=== PATIENT | male | born 1965 | race Caucasian/White ===

== ENCOUNTER 2019-11-22 09:38 | Emergency (ER) | payer MEDICAID ==
[~2019-11-22] VITALS: Ht 185.4 cm; Wt 110.0 kg
[~2019-11-22 09:38] MED LIST: HYDR100C2 PO; IBUP-1984 PO; NO HOME MEDS; SERT25TA PO
[2019-11-22 10:21] LABS: BASOPHILS # (AUTO) 0.1 X10'3 (0-0.2); BASOPHILS % (AUTO) 0.7 % (0-1); EOSINOPHILS # (AUTO) 0.2 X10'3 (0-0.9); HEMATOCRIT 46.6 % (42.0-52.0); HEMOGLOBIN 15.1 g/dl (14.0-17.9); LYMPHOCYTES # (AUTO) 1.5 X10'3 (1.1-4.8); LYMPHOCYTES % (AUTO) 16.3 % (21-51); MEAN CORPUSCULAR HEMOGLOBIN 28.6 PG (27.0-31.0); MEAN CORPUSCULAR HGB CONC 32.4 g/dL (33.0-36.5); MEAN CORPUSCULAR VOLUME 88.1 FL (78-98); MONOCYTES # (AUTO) 0.6 X10'3 (0-0.9); MONOCYTES % (AUTO) 6.1 % (2-12); NEUTROPHILS # (AUTO) 6.9 X10'3 (1.8-7.7); NEUTROPHILS % (AUTO) 74.9 % (42-75); PLATELET COUNT 312 X10'3 (140-440); RED BLOOD COUNT 5.29 X10'6 (4.70-6.10); RED CELL DISTRIBUTION WIDTH 14.5 % (11.5-14.5); WHITE BLOOD COUNT 9.2 X10'3 (4.5-11.0)
[2019-11-22 10:34] LABS: ALANINE AMINOTRANSFERASE 26 U/L (12-78); ALBUMIN 3.6 G/DL (3.4-5.0); ALBUMIN/GLOBULIN RATIO 0.9 (1.1-1.5); ALKALINE PHOSPHATASE 106 IU/L (46-116); ANION GAP 6 (8-16); ASPARTATE AMINO TRANSFERASE 16 U/L (10-37); BILIRUBIN,TOTAL 0.3 MG/DL (0.1-1.0); BLOOD UREA NITROGEN 11 MG/DL (7-18); BUN/CREATININE RATIO 12.8 (5.4-32.0); CALCIUM 8.8 MG/DL (8.5-10.1); CHLORIDE 105 MMOL/L (99-107); CREATININE 0.86 MG/DL (0.60-1.10); GLUCOSE 106 MG/DL (70-104); POTASSIUM 4.6 MMOL/L (3.5-5.1); SODIUM 139 MMOL/L (135-145); TOTAL CARBON DIOXIDE 28.3 MMOL/L (24-32); TOTAL PROTEIN 7.4 G/DL (6.4-8.2); eGFR > 90 ML/MIN
[2019-11-22] MEDS ORDERED: LIDOcaine 1% 30ml preserv. free vial SQ STA (10:43)
[2019-11-22] MEDS ORDERED: cyclobenzaprine 10mg tablet PO ONE (10:45)
[2019-11-22] MEDS ORDERED: ketorolac tromethamine 15mg/ml inj. IM ONE (11:50)
[2019-11-22] MEDS ORDERED: ondansetron 4mg rapidly disintigrating tab PO ONE (11:50)
[2019-11-22 12:18] LABS: CLARITY,URINE CLEAR (Clear); COLOR,URINE YELLOW (Yellow); GLUCOSE, URINE NEGATIVE (Neg); KETONES,URINE NEGATIVE (Neg); LEUKOCYTE ESTERASE ,URINE NEGATIVE (Neg); NITRITES, URINE NEGATIVE (Neg); OCCULT BLOOD,URINE NEGATIVE (Neg); PH,URINE 5.5 (4.8-8.0); PROTEIN,URINE NEGATIVE (Neg); UROBILINOGEN,URINE 0.2 E.U/dL (0.2-1.0)
[2019-11-22 12:19] LABS: UA COLLECTION TYPE CLN CATCH MIDSTREAM
--- NOTE | 2019-11-22 12:20 | NUR ---
PT REPORTS FEELING NUASEA. PA HIEN GAVE PT SANWICH, JUICE AND CRACKERS. PT ATE 100%. PT LREPORTS THAT NAUSEA IS GONE.
[2019-11-22] MEDS ORDERED: LIDO700A32 TOP (13:30)
[2019-11-22] MEDS ORDERED: IBUP-1985 PO (13:30)
[2019-11-22 13:36] VITALS: BP 133/87
== END 2019-11-22 13:38 | disposition home or self-care (01) ==
LOC: ER 09:38
DX: M54.5 Low back pain (principal); R30.0 Dysuria; R11.0 Nausea; F17.200 Nicotine dependence, unspecified, uncomplicated; R10.9 Unspecified abdominal pain; Z87.442 Personal history of urinary calculi; Z72.89 Other problems related to lifestyle; Z79.899 Other long term (current) drug therapy
CPT/HCPCS: 20552; 36415; 74176; 80053; 81003; 85025; 96372; 99285; J1885

== ENCOUNTER 2020-03-21 17:23 | Emergency (ER) | payer MEDICAID ==
[~2020-03-21] VITALS: Ht 185.4 cm; Wt 100.0 kg
[~2020-03-21 17:23] MED LIST changes: +IBUP-1985 PO; +LIDO700A32 TOP
[2020-03-21] MEDS ORDERED: PRED20TA PO (19:28)
[2020-03-21] MEDS ORDERED: triamcinolone acetonide 40mg/ml inj IM ONE (19:30)
[2020-03-21 20:04] VITALS: BP 136/85
== END 2020-03-21 20:06 | disposition home or self-care (01) ==
LOC: ER 17:23
DX: R21 Rash and other nonspecific skin eruption (principal); Z87.11 Personal history of peptic ulcer disease; Z87.442 Personal history of urinary calculi; Z72.89 Other problems related to lifestyle; Z79.899 Other long term (current) drug therapy
CPT/HCPCS: 96372; 99283; J3301

== ENCOUNTER 2023-04-06 12:53 | Emergency (ER) | payer MEDICAID ==
[~2023-04-06] VITALS: Ht 185.4 cm; Wt 113.6 kg
[2023-04-06 12:59] VITALS: BP 130/92; PULSE 103; O2SAT 98
[2023-04-06 13:28] VITALS: RESP 18
[2023-04-06] MEDS ORDERED: iohexol 300mg/ml 100ml inj. ONE (15:07)
[2023-04-06 15:40] LABS: BASOPHILS # (AUTO) 0.1 X10'3 (0-0.2); EOSINOPHILS # (AUTO) 0.2 X10'3 (0-0.9); MONOCYTES # (AUTO) 0.7 X10'3 (0-0.9); WHITE BLOOD COUNT 10.2 X10'3 (4.5-11.0)
[2023-04-06 15:43] LABS: BASOPHILS % (AUTO) 1.1 % (0-1); EOSINOPHILS % (AUTO) 1.9 % (0-6); HEMATOCRIT 46.3 % (42.0-52.0); HEMOGLOBIN 14.9 g/dl (14.0-17.9); LYMPHOCYTES # (AUTO) 2.2 X10'3 (1.1-4.8); LYMPHOCYTES % (AUTO) 21.2 % (21-51); MEAN CORPUSCULAR HEMOGLOBIN 28.2 PG (27.0-31.0); MEAN CORPUSCULAR HGB CONC 32.3 g/dL (33.0-36.5); MEAN CORPUSCULAR VOLUME 87.4 FL (78-98); MEAN PLATELET VOLUME 8.2 FL (7.4-10.4); MONOCYTES % (AUTO) 6.6 % (2-12); NEUTROPHILS # (AUTO) 7.1 X10'3 (1.8-7.7); NEUTROPHILS % (AUTO) 69.2 % (42-75); PLATELET COUNT 311 X10'3 (140-440); RED CELL DISTRIBUTION WIDTH 14.6 % (11.5-14.5)
[2023-04-06 15:58] LABS: ALANINE AMINOTRANSFERASE 35 U/L (12-78); ALBUMIN 3.9 G/DL (3.4-5.0); ALBUMIN/GLOBULIN RATIO 1.1 (1.1-1.5); ALKALINE PHOSPHATASE 100 IU/L (46-116); ANION GAP 7 (8-16); ASPARTATE AMINO TRANSFERASE 32 U/L (10-37); BILIRUBIN,TOTAL 0.7 MG/DL (0.1-1.0); BLOOD UREA NITROGEN 14 MG/DL (7-18); BUN/CREATININE RATIO 14.4 (10.0-20.0); CALCIUM 9.4 MG/DL (8.5-10.1); CHLORIDE 106 MMOL/L (99-107); CREATININE 0.97 MG/DL (0.60-1.10); GLUCOSE 100 MG/DL (70-104); LIPASE 32 U/L (16-77); POTASSIUM 3.9 MMOL/L (3.5-5.1); SODIUM 141 MMOL/L (135-145); TOTAL CARBON DIOXIDE 28.1 MMOL/L (24-32); TOTAL PROTEIN 7.6 G/DL (6.4-8.2); eCRCL 97 ML/MIN; eGFR 80 ML/MIN
[2023-04-06] MEDS ORDERED: CYCL-1 PO (17:01)
[2023-04-06] MEDS ORDERED: IBUP-1984 PO (17:01)
[2023-04-06 17:22] VITALS: TEMP 98
== END 2023-04-06 17:25 | disposition home or self-care (01) ==
LOC: ER 12:53
DX: M54.50 Low back pain, unspecified (principal); R10.11 Right upper quadrant pain; R07.89 Other chest pain; Z87.442 Personal history of urinary calculi; Z72.89 Other problems related to lifestyle; Z79.899 Other long term (current) drug therapy; V87.7XXA Person injured in collision between other specified motor vehicles (traffic), initial encounter; Y93.89 Activity, other specified; Y92.89 Other specified places as the place of occurrence of the external cause; Y99.8 Other external cause status
CPT/HCPCS: 36415; 74177; 80053; 83690; 85025; 99285; J3490; Q9967